=== PATIENT | male | born 2000 | race African-American/Black ===

== ENCOUNTER 2022-07-18 17:17 | Emergency (ER) | payer SELFPAY | END 2022-07-18 19:36 | disposition left against medical advice (07) | LOC: ERS 17:17 | DX: Z53.29 Procedure and treatment not carried out because of patient's decision for other reasons (principal) ==

== ENCOUNTER 2022-07-25 09:28 | Emergency (ER) | payer SELFPAY ==
[2022-07-25 10:38] LABS: #Lymphocytes 0.9 thou/uL (1.20-3.40); #Monocytes 0.5 thou/uL (0.11-0.59); #Neutrophils 5.2 thou/uL (1.40-6.50); %Eosinophils 0.5 % (0.0-10.0); %Lymphocytes 13.9 % (21.0-51.0); %Monocytes 6.8 % (0.0-10.0); %Neutrophils 78.8 % (42.0-75.0); Hemoglobin 14.3 g/dL (14.0-18.0); Mean Corpuscular HGB CONC 33.4 g/dL (32.0-36.0); Mean Corpuscular Volume 89.8 fl (78.0-98.0); Mean Platelet Volume 8.5 fL (7.4-10.4); Platelet Count 172 10x3/uL (130-400); RBC Distribution Width 12.1 % (11.5-14.5); Red Blood Cell (RBC) Count 4.77 mill/uL (4.70-6.10); White Blood Cell (WBC) Count 6.6 10x3/uL (4.8-10.8)
[2022-07-25 11:00] LABS: Anion Gap 13 mmol/L (10-20); BUN (Urea Nitrogen) 11 mg/dL (8.9-20.6); Calc. Creatinine Clearance 0 mL/min (70-130); Carbon Dioxide 26 mmol/L (22-29); Chloride 104 mmol/L (98-107); Potassium 3.8 mmol/L (3.5-5.1); Sodium 139 mmol/L (136-145)
[2022-07-25 11:01] LABS: ALT (SGPT) 13 U/L (8-55); AST (SGOT) 17 U/L (5-34); Alkaline Phosphatase 72 U/L (40-110); Bilirubin, Total 0.5 mg/dL (0.2-1.2); Calcium 9.2 mg/dL (7.8-10.44); Estimated GFR 118; Globulin 3.6 g/dL (2.4-3.5); Glucose 99 mg/dL (70-105); Protein, Total 7.6 g/dL (6.0-8.3)
== END 2022-07-25 11:54 | disposition home or self-care (01) ==
LOC: ERS 09:28
DX: R53.1 Weakness (principal); E78.00 Pure hypercholesterolemia, unspecified
CPT/HCPCS: 36415; 36416; 80053; 84443; 84484; 85025; 93005